=== PATIENT | female | born 1940 | race Caucasian/White ===

== ENCOUNTER 2025-07-20 10:30 | Inpatient (IN) | payer MEDICARE ==
[2025-07-20] MEDS ORDERED: Acetaminophen 500 MG TAB ONE (12:01)
[2025-07-20 13:26] LABS: #Basophils 0.04 10x3/uL (0.0-0.2); #Eosinophils Less than 0.03 10x3/uL (0.0-0.5); #Monocytes 1.10 10x3/uL (0.0-1.1); #Neutrophils 10.38 10x3/uL (1.5-8.4); %Basophils 0.3 % (0.0-2.0); %Eosinophils 0.1 % (0.0-6.0); %Lymphocytes 13.5 % (18.0-47.0); %Monocytes 8.2 % (0.0-10.0); %Neutrophils 77.2 % (40.0-75.0); Hematocrit 27.0 % (34.9-44.5); Hemoglobin 9.6 g/dL (12.0-15.5); Mean Corpuscular Hemoglobin 34.5 pg (27.0-33.0); Mean Corpuscular Volume 97.1 fL (81.6-98.3); Platelet Count 227 10x3/uL (150-450); Red Blood Cell (RBC) Count 2.78 10x6/uL (3.90-5.03); White Blood Cell (WBC) Count 13.45 10x3/uL (3.5-10.5)
[2025-07-20 13:40] LABS: INR-International Normal Ratio 1.0; PTT 24.0 sec (22.0-33.0); Prothrombin Time 10.9 sec (9.5-12.1)
[2025-07-20 13:43] LABS: ALT (SGPT) 12 U/L (Less than 34); AST (SGOT) 26 U/L (11-34); Albumin 3.2 g/dL (3.1-4.5); Alkaline Phosphatase 62 U/L (40-110); Anion Gap 9 mmol/L (10-20); BUN (Urea Nitrogen) 20 mg/dL (9.8-20.1); Bilirubin, Total 0.3 mg/dL (0.3-1.2); Calc. Creatinine Clearance 0 mL/min (70-130); Calcium 8.5 mg/dL (7.8-10.44); Carbon Dioxide 25 mmol/L (23-31); Chloride 95 mmol/L (98-107); Globulin 2.5 g/dL (2.4-3.5); Glucose 137 mg/dL (83-110); Potassium 4.4 mmol/L (3.5-5.1); Sodium 125 mmol/L (136-145)
[2025-07-20] MEDS ORDERED: Ondansetron PF 4 MG/2 ML Vial ONE (15:09)
[2025-07-20 16:00] LABS: Glucose, Urine (Dipstick) Normal (Negative); Leukocyte Negative (Negative); Protein, Urine (Dipstick) Negative (Neg-Trace); Specific Gravity, Urine 1.005 (1.005-1.030)
[2025-07-20 16:18] LABS: CAUTI Indications for Culture Pelvic or flank pain; RBC/HPF 0-3 HPF (0-3); WBC/HPF 0-3 HPF (0-3)
[2025-07-20 16:19] LABS: Bacteria/HPF 1+ HPF (None Seen)
[2025-07-20 16:21] LABS: Urine Culture Reflex No No
[2025-07-20 16:27] LABS: Troponin I Less than 0.010 ng/mL (< 0.028)
[2025-07-20] MEDS ORDERED: Melatonin 3 MG TAB PO PRN (17:37)
[2025-07-20] MEDS ORDERED: Bisacodyl 10 MG SUPP PR PRN (17:37)
[2025-07-20] MEDS ORDERED: Ondansetron PF 4 MG/2 ML Vial IVP PRN (17:37)
[2025-07-20] MEDS ORDERED: Senokot S 8.6-50 MG TAB PO PRN (17:37)
[2025-07-20] MEDS ORDERED: Calcium Carbonate 500 MG ChewTAB PO PRN (17:37)
[2025-07-20] MEDS ORDERED: Guaifenesin DM 100-10/5 ML UDCUP PO PRN (17:37)
[2025-07-20] MEDS ORDERED: Electrolyte Replacement Protocol 1 EACH FS SCH (17:45)
[2025-07-20] MEDS ORDERED: Magnesium 2 GM/50 ML(in water) 2 GM in Premix 1 BAG IVPB PRN (18:06)
[2025-07-20] MEDS ORDERED: Potassium Chloride 20 MEQ in Premix 1 BAG IVPB PRN (18:15)
[2025-07-20] MEDS ORDERED: PHOS-NAK 1 PKT PACK PO PRN (18:15)
[2025-07-20 23:17] VITALS: BMI 17.5
[2025-07-21 01:26] LABS: Sodium 124 mmol/L (136-145)
[2025-07-21 05:20] LABS: #Basophils Less than 0.03 10x3/uL (0.0-0.2); #Eosinophils Less than 0.03 10x3/uL (0.0-0.5); #Monocytes 1.12 10x3/uL (0.0-1.1); #Neutrophils 7.65 10x3/uL (1.5-8.4); %Basophils 0.2 % (0.0-2.0); %Eosinophils 0.2 % (0.0-6.0); %Lymphocytes 16.1 % (18.0-47.0); %Monocytes 10.6 % (0.0-10.0); %Neutrophils 72.5 % (40.0-75.0); Hematocrit 23.1 % (34.9-44.5); Hemoglobin 8.1 g/dL (12.0-15.5); Mean Corpuscular Hemoglobin 34.8 pg (27.0-33.0); Mean Corpuscular Volume 99.1 fL (81.6-98.3); Platelet Count 175 10x3/uL (150-450); Red Blood Cell (RBC) Count 2.33 10x6/uL (3.90-5.03); White Blood Cell (WBC) Count 10.55 10x3/uL (3.5-10.5)
[2025-07-21 05:36] LABS: ALT (SGPT) 13 U/L (Less than 34); AST (SGOT) 24 U/L (11-34); Albumin 3.2 g/dL (3.1-4.5); Alkaline Phosphatase 61 U/L (40-110); Anion Gap 11 mmol/L (10-20); BUN (Urea Nitrogen) 17 mg/dL (9.8-20.1); Bilirubin, Total 0.5 mg/dL (0.3-1.2); Calc. Creatinine Clearance 32 mL/min (70-130); Calcium 8.4 mg/dL (7.8-10.44); Carbon Dioxide 25 mmol/L (23-31); Chloride 97 mmol/L (98-107); Globulin 2.3 g/dL (2.4-3.5); Glucose 122 mg/dL (83-110); Magnesium 2.1 mg/dL (1.6-2.6); Potassium 4.3 mmol/L (3.5-5.1); Sodium 129 mmol/L (136-145)
[2025-07-21 07:48] LABS: Sodium 130 mmol/L (136-145)
[2025-07-21] MEDS: Metoprolol Succinate XL 50 MG ER.TAB PO SCH (08:22)
[2025-07-21] MEDS: Losartan 50 MG TAB PO SCH (08:22)
[2025-07-22 01:00] VITALS: TEMP 98
[2025-07-22 07:43] VITALS: BP 136/67
[2025-07-22 08:48] LABS: #Basophils 0.03 10x3/uL (0.0-0.2); #Eosinophils 0.04 10x3/uL (0.0-0.5); #Monocytes 0.93 10x3/uL (0.0-1.1); #Neutrophils 8.75 10x3/uL (1.5-8.4); %Basophils 0.3 % (0.0-2.0); %Eosinophils 0.4 % (0.0-6.0); %Lymphocytes 12.8 % (18.0-47.0); %Monocytes 8.3 % (0.0-10.0); %Neutrophils 77.6 % (40.0-75.0); Hematocrit 23.7 % (34.9-44.5); Hemoglobin 8.2 g/dL (12.0-15.5); Mean Corpuscular Hemoglobin 34.5 pg (27.0-33.0); Mean Corpuscular Volume 99.6 fL (81.6-98.3); Platelet Count 199 10x3/uL (150-450); Red Blood Cell (RBC) Count 2.38 10x6/uL (3.90-5.03); White Blood Cell (WBC) Count 11.26 10x3/uL (3.5-10.5)
[2025-07-22] MEDS: Acetaminophen 325 MG TAB PO PRN (08:58)
[2025-07-22 09:02] LABS: ALT (SGPT) 15 U/L (Less than 34); AST (SGOT) 30 U/L (11-34); Albumin 3.5 g/dL (3.1-4.5); Alkaline Phosphatase 64 U/L (40-110); Anion Gap 13 mmol/L (10-20); BUN (Urea Nitrogen) 16 mg/dL (9.8-20.1); Bilirubin, Total 0.4 mg/dL (0.3-1.2); Calc. Creatinine Clearance 36 mL/min (70-130); Calcium 8.5 mg/dL (7.8-10.44); Carbon Dioxide 22 mmol/L (23-31); Chloride 99 mmol/L (98-107); Globulin 2.6 g/dL (2.4-3.5); Glucose 145 mg/dL (83-110); Potassium 3.9 mmol/L (3.5-5.1); Sodium 130 mmol/L (136-145)
== END 2025-07-22 10:59 | disposition home health service (06) | DRG 312 ==
LOC: CSHERS 10:30 → CSHERHOLD 17:09 → CSHTELE 21:22 → OBSVTOIN 07-21 14:02
PROVIDERS: ADMIT Internal Medicine; ATTEND Family Medicine
DX: R55 Syncope and collapse (principal); E87.1 Hypo-osmolality and hyponatremia; S70.01XA Contusion of right hip, initial encounter; D64.9 Anemia, unspecified; I10 Essential (primary) hypertension; Z95.0 Presence of cardiac pacemaker; Z79.899 Other long term (current) drug therapy; W19.XXXA Unspecified fall, initial encounter
CPT/HCPCS: 36415; 70450; 71260; 72125; 72170; 72192; 74177; 80053; 81001; 83735; 83880; 84100; 84484; 85025; 85610; 85730; 93005; 93306; 96374; 96375; G0378; J2272; J2310; J2405; J7030